=== PATIENT | male | born 1960 | race Caucasian/White ===

== ENCOUNTER → 2023-11-11 08:03 | Outpatient (REF) | payer OTHER, SELFPAY | LOC: DHCBC HW 08:03 | PROVIDERS: ATTENDING PHYSICIAN Internal Medicine Cardiovascular Disease; FAMILY PHYSICIAN Nurse Practitioner Family | DX: E78.5 Hyperlipidemia, unspecified (principal); I31.39 Other pericardial effusion (noninflammatory); I25.10 Atherosclerotic heart disease of native coronary artery without angina pectoris; I25.84 Coronary atherosclerosis due to calcified coronary lesion | CPT/HCPCS: 93308 ==

== ENCOUNTER → 2024-05-24 18:58 | Outpatient (REF) | payer OTHER, SELFPAY | LOC: MRI 3T 18:58 | PROVIDERS: ATTENDING PHYSICIAN Surgery; FAMILY PHYSICIAN Nurse Practitioner Family | DX: R97.20 Elevated prostate specific antigen [PSA] (principal); Z80.42 Family history of malignant neoplasm of prostate | CPT/HCPCS: 72197; A9575 ==

== ENCOUNTER → 2024-10-11 13:38 | Outpatient (REF) | payer OTHER, SELFPAY | LOC: HWRCS 13:38 | PROVIDERS: ATTENDING PHYSICIAN Internal Medicine Cardiovascular Disease; FAMILY PHYSICIAN Nurse Practitioner Family | DX: E78.5 Hyperlipidemia, unspecified (principal); I31.39 Other pericardial effusion (noninflammatory); I25.10 Atherosclerotic heart disease of native coronary artery without angina pectoris; I25.84 Coronary atherosclerosis due to calcified coronary lesion | CPT/HCPCS: 93306 ==